=== PATIENT | male | born 1945 | race Caucasian/White ===

== ENCOUNTER 2018-05-10 02:29 | Observation (INO) | payer MEDICARE, OTHER ==
[~2018-05-10] VITALS: Ht 177.8 cm; Wt 106.7 kg
[2018-05-10] MEDS ORDERED: GABA-827 PO (02:56)
[2018-05-10] MEDS ORDERED: EMPA10TA PO (02:56)
[2018-05-10] MEDS ORDERED: METF500T17 PO (02:56)
[2018-05-10] MEDS ORDERED: METO25TA35 PO (02:56)
[2018-05-10] MEDS ORDERED: INSU100V8 SQ (02:56)
[2018-05-10] MEDS ORDERED: GLIM1TAB2 PO (02:56)
[2018-05-10] MEDS ORDERED: SAXA2.5T PO (02:56)
[2018-05-10] MEDS ORDERED: FENO54TA17 PO (02:56)
[2018-05-10] MEDS ORDERED: ASPI-621 PO (02:56)
[2018-05-10] MEDS ORDERED: TRAN1TAB PO (02:56)
[2018-05-10] MEDS ORDERED: SODIUM CHLORIDE FLUSH 10ML SYR IVF ONE (03:00)
[2018-05-10] MEDS ORDERED: NITROGLYCERIN SINGLE TAB 0.4 MG SL ONE (03:00)
[2018-05-10 03:02] LABS: BASOPHILS # (AUTO) 0.09 x10^3/uL (0-0.1); BASOPHILS % (AUTO) 1 % (0-1); EOSINOPHILS # (AUTO) 0.45 x10^3/uL (0-0.4); EOSINOPHILS % (AUTO) 5 % (1-7); LYMPHOCYTES # (AUTO) 3.07 x10^3/uL (1-3.4); LYMPHOCYTES % (AUTO) 31 % (22-44); MD NO; MEAN CORPUSCULAR HEMOGLOBIN 30.5 pg (27.5-34.5); MEAN CORPUSCULAR HGB CONC 34.3 g/dL (33.2-36.2); MEAN CORPUSCULAR VOLUME 88.9 fL (81-97); MEAN PLATELET VOLUME 8.8 fL (7.4-10.4); MONOCYTES # (AUTO) 0.79 x10^3/uL (0.2-0.8); MONOCYTES % (AUTO) 8 % (2-9); NEUTROPHILS % (AUTO) 56 % (42-75); PLATELET COUNT 238 x10^3/uL (130-400); RED BLOOD COUNT 5.26 x10^6/uL (4.38-5.82); RED CELL DISTRIBUTION WIDTH 13.8 % (9.4-14.8)
[2018-05-10] MEDS: NITROGLYCERIN SINGLE TAB 0.4 MG SL PRN ×2 (03:03→03:36)
[2018-05-10 03:12] LABS: ALANINE AMINOTRANSFERASE 35 U/L (12-78); ALBUMIN 3.5 g/dL (3.4-5.0); ANION GAP 9 mmol/L (5-15); CALCIUM 8.6 mg/dL (8.5-10.1); CHLORIDE 108 mmol/L (98-107); CREATININE 1.13 mg/dL (0.7-1.3)
[2018-05-10 03:16] LABS: ALKALINE PHOSPHATASE 83 U/L (45-117); BILIRUBIN,TOTAL 0.4 mg/dL (0.2-1.0); TOTAL PROTEIN 6.3 g/dL (6.4-8.2); TROPONIN I < 0.015 ng/mL (0.000-0.045)
[2018-05-10] MEDS ORDERED: ONDANSETRON 2MG/ML, 2ML ONE (03:57)
[2018-05-10] MEDS ORDERED: MORPHINE SULFATE 4 MG/ML, 1ML ONE (03:57)
[2018-05-10] MEDS ORDERED: ONDANSETRON 2MG/ML, 2ML IVPush PRN ×2 (04:00→05:30)
[2018-05-10] MEDS ORDERED: MORPHINE SULFATE 4 MG/ML, 1ML IVPush PRN (04:00)
[2018-05-10 04:48] VITALS: BP 141/87
[2018-05-10] MEDS ORDERED: ACETAMINOPHEN 325 MG TABLET PO PRN (05:30)
[2018-05-10] MEDS ORDERED: morphine SULFATE 10 MG/ML, 1ML IVPush PRN (05:30)
[2018-05-10] MEDS ORDERED: hydrALAzine 20 MG/ML, 1ML IVPush PRN (05:30)
[2018-05-10] MEDS ORDERED: NITROGLYCERIN 0.4 MG BOTTLE (25 TABS) SL PRN (05:30)
[2018-05-10] MEDS: SODIUM CHLORIDE 0.9% 1,000 ML IV SCH ×2 (05:57→16:43)
[2018-05-10] MEDS: INSULIN LISPRO 100 UNITS/ML, PEN SQ-INSULIN SCH ×4 (07:00→21:00)
[2018-05-10 07:22] VITALS: BP 126/69
[2018-05-10] MEDS ORDERED: REGADENOSON 0.4 MG/5 ML SYRINGE ONE (08:30)
[2018-05-10] MEDS: ASPIRIN 81 MG TABLET EC PO SCH ×2 (08:40→21:14)
[2018-05-10 09:08] LABS: TROPONIN I 0.019 ng/mL (0.000-0.045)
[2018-05-10] MEDS ORDERED: TAMS0.4C2 PO (11:33)
[2018-05-10] MEDS ORDERED: PRAV80TA2 PO (11:33)
[2018-05-10 11:42] VITALS: BP 142/90
[2018-05-10 11:54] VITALS: BP 125/76
[2018-05-10 12:14] LABS: TROPONIN I < 0.015 ng/mL (0.000-0.045)
[2018-05-10 12:34] VITALS: BP 113/67
[2018-05-10] MEDS ORDERED: MAALOX/HYOSCYAMINE/LIDOCAINE 45 ML BTL PO ONE (14:00)
[2018-05-10] MEDS ORDERED: INSULIN GLARGINE 100 UNITS/ML, PEN SQ-INSULIN SCH (20:00)
[2018-05-10 20:15] VITALS: BP 147/87
[2018-05-10] MEDS ORDERED: METOPROLOL TARTRATE 50 MG TABLET PO SCH (21:00)
[2018-05-10] MEDS: PRAVASTATIN 40 MG TABLET PO SCH (21:13)
[2018-05-10] MEDS: metFORMIN 500 MG TABLET PO SCH (21:13)
[2018-05-10] MEDS: TAMSULOSIN 0.4 MG CAP.ER.24H PO SCH (21:14)
[2018-05-10] MEDS: GABAPENTIN 100 MG CAPSULE PO SCH (21:14)
[2018-05-11 01:34] VITALS: BP 104/64
[2018-05-11 01:42] LABS: HEMOGLOBIN A1C 8.7 % (4.2-6.3)
[2018-05-11] MEDS: SODIUM CHLORIDE 0.9% 1,000 ML IV SCH ×4 (05:10→19:24)
[2018-05-11] MEDS: INSULIN LISPRO 100 UNITS/ML, PEN SQ-INSULIN SCH ×4 (07:00→21:02)
[2018-05-11 07:21] VITALS: BP 135/80
[2018-05-11] MEDS: (Empagliflozin (Jardiance) 10 MG) PO SCH (09:00)
[2018-05-11] MEDS: GLIMEPIRIDE 4 MG TABLET PO SCH (09:00)
[2018-05-11] MEDS: metFORMIN 500 MG TABLET PO SCH ×2 (09:00→19:23)
[2018-05-11] MEDS: SAXAGLIPTIN HCL 5 MG PO SCH (09:00)
[2018-05-11] MEDS: FENOFIBRATE 54 MG TABLET PO SCH (09:09)
[2018-05-11] MEDS: GABAPENTIN 100 MG CAPSULE PO SCH ×3 (09:09→20:58)
[2018-05-11] MEDS: METOPROLOL TARTRATE 25 MG TABLET PO SCH ×2 (09:09→20:58)
[2018-05-11] MEDS: ASPIRIN 81 MG TABLET EC PO SCH ×2 (09:09→20:58)
[2018-05-11] MEDS ORDERED: SODIUM CHLORIDE 0.9% 1,000 ML IV ONE (10:16)
[2018-05-11] MEDS ORDERED: VERAPAMIL 2.5 MG/ML, 2ML ONE (12:15)
[2018-05-11] MEDS ORDERED: BIVALIRUDIN 250 MG ONE ×2 (12:15→13:46)
[2018-05-11] MEDS ORDERED: FENTANYL PF 100 MCG/2ML ONE (12:15)
[2018-05-11] MEDS ORDERED: MIDAZOLAM 1 MG/ML, 5ML ONE (12:15)
[2018-05-11] MEDS ORDERED: NITROGLYCERIN 5 MG/ML, 10ML ONE (12:15)
[2018-05-11] MEDS ORDERED: HEPARIN 1,000 UNITS/ML, 10ML ONE (12:16)
[2018-05-11 13:15] VITALS: BP 123/68
[2018-05-11] MEDS ORDERED: BIVALIRUDIN 250 MG in DEXTROSE 5% 100 ML IV SCH ×2 (14:12→18:00)
[2018-05-11 15:32] VITALS: BP 123/78
[2018-05-11] MEDS ORDERED: PRASUGREL 10 MG TABLET ONE (17:10)
[2018-05-11 18:36] VITALS: BP 142/85
[2018-05-11] MEDS: TAMSULOSIN 0.4 MG CAP.ER.24H PO SCH (20:58)
[2018-05-11] MEDS: PRAVASTATIN 40 MG TABLET PO SCH (20:58)
[2018-05-12] MEDS: SODIUM CHLORIDE 0.9% 1,000 ML IV SCH ×2 (00:13→07:43)
[2018-05-12 01:27] VITALS: BP 100/56
[2018-05-12 05:42] LABS: ANION GAP 8 mmol/L (5-15); CALCIUM 8.1 mg/dL (8.5-10.1); CHLORIDE 111 mmol/L (98-107); CREATININE 1.02 mg/dL (0.7-1.3)
[2018-05-12] MEDS: INSULIN LISPRO 100 UNITS/ML, PEN SQ-INSULIN SCH ×2 (07:00→11:35)
[2018-05-12 08:01] VITALS: BP 126/72
[2018-05-12] MEDS: (Empagliflozin (Jardiance) 10 MG) PO SCH (09:00)
[2018-05-12] MEDS: METOPROLOL TARTRATE 25 MG TABLET PO SCH (09:00)
[2018-05-12] MEDS ORDERED: PRASUGREL 10 MG TABLET PO SCH (09:00)
[2018-05-12] MEDS: SAXAGLIPTIN HCL 5 MG PO SCH (09:00)
[2018-05-12] MEDS: metFORMIN 500 MG TABLET PO SCH (09:41)
[2018-05-12] MEDS: FENOFIBRATE 54 MG TABLET PO SCH (09:44)
[2018-05-12] MEDS: ASPIRIN 81 MG TABLET EC PO SCH (09:46)
[2018-05-12] MEDS: GABAPENTIN 100 MG CAPSULE PO SCH (09:47)
[2018-05-12] MEDS: GLIMEPIRIDE 4 MG TABLET PO SCH (10:01)
[2018-05-12] MEDS ORDERED: METO25TA35 PO (10:46)
[2018-05-12] MEDS ORDERED: PRAS10TA4 PO (10:46)
[2018-05-12] MEDS ORDERED: NITR0.4T SL (10:46)
== END 2018-05-12 11:57 | disposition home or self-care (01) ==
LOC: ED 02:55 → EDIP 03:54 → 5SO 03:54 → INTOOBSV 03:54 → UNDOADMIN 03:54 → DCLOUNGE 05-12 11:44
PROVIDERS: ADMIT Hospitalist; ATTEND Hospitalist
DX: R07.89 Other chest pain (principal); E11.65 Type 2 diabetes mellitus with hyperglycemia; E66.9 Obesity, unspecified; E78.5 Hyperlipidemia, unspecified; G47.33 Obstructive sleep apnea (adult) (pediatric); I10 Essential (primary) hypertension; I21.4 Non-ST elevation (NSTEMI) myocardial infarction; I25.110 Atherosclerotic heart disease of native coronary artery with unstable angina pectoris; I44.7 Left bundle-branch block, unspecified; I47.2 Ventricular tachycardia; K21.0 Gastro-esophageal reflux disease with esophagitis; K22.10 Ulcer of esophagus without bleeding; Z82.49 Family history of ischemic heart disease and other diseases of the circulatory system; Z83.3 Family history of diabetes mellitus
CPT/HCPCS: 36415; 71045; 78452; 80048; 80053; 82962; 83036; 84484; 85025; 93005; 93017; 93306; 93458; 96365; 96366; 96372; 96375; 99156; 99157; 99285; A9502; C1725; C1769; C1874; C1887; C1894; C9600; C9898; G0378; J0583; J1644; J1815; J2250; J2405; J2785; J3010; J7030; Q9967

== ENCOUNTER 2018-06-01 10:39 | Day surgery (SDC) | payer MEDICARE, OTHER ==
[~2018-06-01] VITALS: Ht 177.8 cm; Wt 100.0 kg
[~2018-06-01 10:39] MED LIST: ASPI81TA45 PO; EMPA10TA PO; FENO54TA17 PO; GABA-827 PO; GLIM1TAB2 PO; INSU100V8 SQ; METF500T17 PO; METO25TA35 PO; NITR0.4T SL; PRAS10TA4 PO; PRAV80TA2 PO; SAXA2.5T PO; TAMS0.4C2 PO; TRAN1TAB PO
[2018-06-01 11:47] VITALS: BP 118/83
[2018-06-01 12:25] LABS: ANION GAP 8 mmol/L (5-15); CALCIUM 9.1 mg/dL (8.5-10.1); CHLORIDE 108 mmol/L (98-107); CREATININE 1.14 mg/dL (0.7-1.3)
[2018-06-01 12:41] LABS: RED BLOOD COUNT 5.33 x10^6/uL (4.38-5.82)
[2018-06-01 12:42] LABS: BASOPHILS # (AUTO) 0.05 x10^3/uL (0-0.1); BASOPHILS % (AUTO) 1 % (0-1); EOSINOPHILS # (AUTO) 0.25 x10^3/uL (0-0.4); EOSINOPHILS % (AUTO) 3 % (1-7); LYMPHOCYTES # (AUTO) 2.23 x10^3/uL (1-3.4); LYMPHOCYTES % (AUTO) 25 % (22-44); MD NO; MEAN CORPUSCULAR HEMOGLOBIN 30.2 pg (27.5-34.5); MEAN CORPUSCULAR HGB CONC 33.9 g/dL (33.2-36.2); MEAN PLATELET VOLUME 8.3 fL (7.4-10.4); MONOCYTES # (AUTO) 0.74 x10^3/uL (0.2-0.8); MONOCYTES % (AUTO) 8 % (2-9); NEUTROPHILS # (AUTO) 5.63 x10^3/uL (1.8-6.8); NEUTROPHILS % (AUTO) 63 % (42-75); PLATELET COUNT 265 x10^3/uL (130-400); RED CELL DISTRIBUTION WIDTH 13.7 % (9.4-14.8)
[2018-06-01] MEDS ORDERED: TICAGRELOR 90 MG TABLET ONE (13:07)
[2018-06-01] MEDS ORDERED: FENTANYL PF 100 MCG/2ML ONE (13:07)
[2018-06-01] MEDS ORDERED: BIVALIRUDIN 250 MG ONE (13:07)
[2018-06-01] MEDS ORDERED: VERAPAMIL 2.5 MG/ML, 2ML ONE (13:07)
[2018-06-01] MEDS ORDERED: HEPARIN 1,000 UNITS/ML, 10ML ONE (13:07)
[2018-06-01] MEDS ORDERED: MIDAZOLAM 1 MG/ML, 5ML ONE (13:07)
[2018-06-01] MEDS ORDERED: PRASUGREL 10 MG TABLET ONE (13:16)
== END 2018-06-01 17:38 | disposition home or self-care (01) ==
LOC: CACL 10:39 → 5SO 14:16 → CACL 17:38
PROVIDERS: ATTEND Internal Medicine Cardiovascular Disease
DX: I25.110 Atherosclerotic heart disease of native coronary artery with unstable angina pectoris (principal); E11.9 Type 2 diabetes mellitus without complications; I10 Essential (primary) hypertension; I25.2 Old myocardial infarction; E78.00 Pure hypercholesterolemia, unspecified; I35.0 Nonrheumatic aortic (valve) stenosis; I34.2 Nonrheumatic mitral (valve) stenosis; Z79.82 Long term (current) use of aspirin; Z79.899 Other long term (current) drug therapy
CPT/HCPCS: 36415; 80048; 85025; 93454; 99156; C1760; C1769; C1894; J0583; J2250; J3010; Q9967; G0378; J1644

== ENCOUNTER 2019-01-24 06:46 | Outpatient (CLI) | payer MEDICARE, OTHER ==
[~2019-01-24 06:46] MED LIST changes: -NITR0.4T SL; +NITR0.4T41 SL
== END 2019-01-24 23:59 | disposition home or self-care (01) ==
LOC: CFH 06:46
PROVIDERS: ATTEND Internal Medicine Cardiovascular Disease
DX: I08.0 Rheumatic disorders of both mitral and aortic valves (principal); I25.10 Atherosclerotic heart disease of native coronary artery without angina pectoris; I10 Essential (primary) hypertension; E78.5 Hyperlipidemia, unspecified; Z95.5 Presence of coronary angioplasty implant and graft; Z79.01 Long term (current) use of anticoagulants; Z87.891 Personal history of nicotine dependence
CPT/HCPCS: 93306

== ENCOUNTER 2019-12-06 09:36 | Outpatient (CLI) | payer MEDICARE, OTHER ==
[~2019-12-06 09:36] MED LIST changes: -GLIM1TAB2 PO; +GLIM1TAB7 PO
== END 2019-12-06 23:59 | disposition home or self-care (01) ==
LOC: CFH 09:36
PROVIDERS: ATTEND Internal Medicine Cardiovascular Disease
DX: I08.0 Rheumatic disorders of both mitral and aortic valves (principal); I10 Essential (primary) hypertension; E78.5 Hyperlipidemia, unspecified; E11.9 Type 2 diabetes mellitus without complications
CPT/HCPCS: 93306

== ENCOUNTER 2019-12-21 08:26 | Day surgery (SDC) | payer MEDICARE ==
[~2019-12-21] VITALS: Ht 177.8 cm; Wt 103.2 kg
[2019-12-21] MEDS ORDERED: CLOPIDOGREL 75 MG TABLET PO ONE (09:00)
[2019-12-21] MEDS ORDERED: CLOP75TA52 PO (09:14)
[2019-12-21] MEDS ORDERED: METO50TA82 PO (09:14)
[2019-12-21] MEDS ORDERED: FENO160T PO (09:14)
[2019-12-21] MEDS ORDERED: FENTANYL PF 100 MCG/2ML ONE (09:18)
[2019-12-21] MEDS ORDERED: LIDOCAINE-MPF 1%, 5ML ONE (09:18)
[2019-12-21] MEDS ORDERED: HEPARIN 1,000 UNITS/ML, 10ML ONE (09:18)
[2019-12-21] MEDS ORDERED: VERAPAMIL 2.5 MG/ML, 2ML ONE (09:18)
[2019-12-21] MEDS ORDERED: MIDAZOLAM 1 MG/ML, 5ML ONE (09:18)
[2019-12-21] MEDS ORDERED: EZET10TA70 PO (09:23)
[2019-12-21 09:25] VITALS: BP 140/91
[2019-12-21] MEDS ORDERED: CLOPIDOGREL 75 MG TABLET ONE (09:29)
[2019-12-21] MEDS: SODIUM BICARBONATE 8.4% 150 MEQ in DEXTROSE 5% 1,000 ML IV SCH ×2 (09:30→10:34)
[2019-12-21 09:31] LABS: ANION GAP 9 mmol/L (5-15); CALCIUM 9.1 mg/dL (8.5-10.1); CHLORIDE 105 mmol/L (98-107); CREATININE 1.19 mg/dL (0.7-1.3)
== END 2019-12-21 15:00 | disposition home or self-care (01) ==
LOC: CACL 08:26
PROVIDERS: ATTEND Internal Medicine Cardiovascular Disease
DX: I35.0 Nonrheumatic aortic (valve) stenosis (principal); I25.10 Atherosclerotic heart disease of native coronary artery without angina pectoris; I10 Essential (primary) hypertension; E11.9 Type 2 diabetes mellitus without complications; G47.33 Obstructive sleep apnea (adult) (pediatric); E78.2 Mixed hyperlipidemia; I25.2 Old myocardial infarction; E66.9 Obesity, unspecified; Z79.84 Long term (current) use of oral hypoglycemic drugs; Z79.4 Long term (current) use of insulin; Z68.32 Body mass index [BMI] 32.0-32.9, adult; Z79.899 Other long term (current) drug therapy; Z98.890 Other specified postprocedural states; Z82.49 Family history of ischemic heart disease and other diseases of the circulatory system; Z87.891 Personal history of nicotine dependence
CPT/HCPCS: 36415; 80048; 93454; 99156; 99157; C1769; C1894; J1644; J2250; J3010; J7070; Q9967

== ENCOUNTER → 2019-12-27 | Outpatient (CLI) | payer MEDICARE ==
[~2019-12-27] MED LIST changes: +CLOP75TA52 PO; +EZET10TA70 PO; +FENO160T PO; +METO50TA82 PO; +VISIPAQUE 320 MG/ML, 150ML BOTTLE ONE
== END | disposition home or self-care (01) ==
LOC: CVU 09:21
PROVIDERS: ATTEND Internal Medicine Cardiovascular Disease
DX: Z01.810 Encounter for preprocedural cardiovascular examination (principal); I65.23 Occlusion and stenosis of bilateral carotid arteries; I25.10 Atherosclerotic heart disease of native coronary artery without angina pectoris; I35.8 Other nonrheumatic aortic valve disorders; I70.0 Atherosclerosis of aorta
CPT/HCPCS: 71275; 74174; 93880; 94010; 94726; 94729; Q9967

== ENCOUNTER 2020-01-03 07:53 | Inpatient (IN) | payer MEDICARE ==
[~2020-01-03] VITALS: Ht 177.8 cm; Wt 103.2 kg
[~2020-01-03 07:53] MED LIST changes: -VISIPAQUE 320 MG/ML, 150ML BOTTLE ONE
[2020-01-03] MEDS ORDERED: SODIUM CHLORIDE 0.9% 1,000 ML IV ONE (08:13)
[2020-01-03 08:23] VITALS: BP 139/81
[2020-01-03] MEDS ORDERED: ONDANSETRON 2MG/ML, 2ML IVPush PRN ×2 (08:30→11:00)
[2020-01-03 08:55] LABS: BASOPHILS # (AUTO) 0.04 x10^3/uL (0-0.1); BASOPHILS % (AUTO) 1 % (0-1); EOSINOPHILS # (AUTO) 0.35 x10^3/uL (0-0.4); EOSINOPHILS % (AUTO) 4 % (1-7); LYMPHOCYTES # (AUTO) 2.16 x10^3/uL (1-3.4); LYMPHOCYTES % (AUTO) 25 % (22-44); MD NO; MEAN CORPUSCULAR HEMOGLOBIN 30.4 pg (27.5-34.5); MEAN CORPUSCULAR HGB CONC 33.3 g/dL (33.2-36.2); MEAN PLATELET VOLUME 8.3 fL (7.4-10.4); MONOCYTES # (AUTO) 0.65 x10^3/uL (0.2-0.8); MONOCYTES % (AUTO) 7 % (2-9); NEUTROPHILS # (AUTO) 5.52 x10^3/uL (1.8-6.8); NEUTROPHILS % (AUTO) 63 % (42-75); PLATELET COUNT 276 x10^3/uL (130-400); RED BLOOD COUNT 5.03 x10^6/uL (4.38-5.82); RED CELL DISTRIBUTION WIDTH 13.8 % (9.4-14.8)
[2020-01-03 09:05] LABS: INTERNATIONAL NORMALIZED RATIO 0.99 (0.93-1.1); PROTHROMBIN TIME 10.5 Seconds (9.6-11.5)
[2020-01-03] MEDS ORDERED: ACAR25TA9 PO (09:05)
[2020-01-03 09:10] LABS: ALBUMIN 3.8 g/dL (3.4-5.0); ANION GAP 6 mmol/L (5-15); CALCIUM 8.9 mg/dL (8.5-10.1); CHLORIDE 104 mmol/L (98-107)
[2020-01-03 09:14] LABS: ALANINE AMINOTRANSFERASE 41 U/L (12-78); ALKALINE PHOSPHATASE 81 U/L (45-117); BILIRUBIN,TOTAL 0.7 mg/dL (0.2-1.0); CREATININE 1.39 mg/dL (0.7-1.3); TOTAL PROTEIN 7.2 g/dL (6.4-8.2)
[2020-01-03] MEDS ORDERED: FENTANYL PF 250 MCG/5ML ONE (09:18)
[2020-01-03] MEDS ORDERED: SUCCINYLCHOLINE 20 MG/ML, 10ML ONE (09:40)
[2020-01-03] MEDS ORDERED: CEFAZOLIN 1,000 MG ONE (09:40)
[2020-01-03] MEDS ORDERED: HEPARIN 1,000 UNITS/ML, 10ML ONE (09:40)
[2020-01-03] MEDS ORDERED: ROCURONIUM 10MG/ML,5ML ONE (10:06)
[2020-01-03] MEDS ORDERED: PROPOFOL 10 MG/ML, 20ML ONE (10:06)
[2020-01-03] MEDS ORDERED: DEXTROSE 4 GM TAB.CHEW PO PRN (11:00)
[2020-01-03] MEDS ORDERED: NITROGLYCERIN SINGLE TAB 0.4 MG SL PRN (11:00)
[2020-01-03] MEDS ORDERED: LABETALOL 20 MG/4 ML IVPush PRN (11:00)
[2020-01-03] MEDS ORDERED: hydrALAzine 20 MG/ML, 1ML IVPush PRN (11:00)
[2020-01-03] MEDS ORDERED: HYDROcodone/APAP 5/325 TABLET PO PRN (11:00)
[2020-01-03] MEDS ORDERED: DEXTROSE 50%, 50ML SYRINGE IVPush PRN (11:00)
[2020-01-03] MEDS ORDERED: GLUCAGON 1 MG IM PRN (11:00)
[2020-01-03] MEDS ORDERED: ACETAMINOPHEN 325 MG TABLET PO PRN (11:00)
[2020-01-03] MEDS ORDERED: CLOPIDOGREL 300 MG TABLET PO ONE (11:00)
[2020-01-03 15:06] VITALS: BP 137/22
[2020-01-03] MEDS ORDERED: ACARBOSE 50 MG TABLET PO SCH (16:00)
[2020-01-03] MEDS ORDERED: GABAPENTIN 100 MG CAPSULE PO SCH (16:00)
[2020-01-03] MEDS ORDERED: PRAVASTATIN 40 MG TABLET PO SCH (21:00)
[2020-01-03] MEDS ORDERED: INSULIN GLARGINE 100 UNITS/ML, PEN SQ-INSULIN SCH (21:00)
[2020-01-03] MEDS ORDERED: METOPROLOL TARTRATE 50 MG TAB PO SCH (21:00)
[2020-01-03] MEDS ORDERED: TAMSULOSIN 0.4 MG CAP.ER.24H PO SCH (21:00)
[2020-01-03] MEDS ORDERED: ASPIRIN 81 MG TABLET EC PO SCH (21:00)
[2020-01-03] MEDS ORDERED: metFORMIN 500 MG TABLET PO SCH (21:00)
[2020-01-03] MEDS ORDERED: SODIUM CHLORIDE FLUSH 10ML SYR IVF SCH (21:00)
[2020-01-04] MEDS ORDERED: EZETIMIBE 10 MG TABLET PO SCH (09:00)
[2020-01-04] MEDS ORDERED: LISINOPRIL 40 MG TABLET PO SCH (09:00)
[2020-01-04] MEDS ORDERED: GLIMEPIRIDE 4 MG TABLET PO SCH (09:00)
[2020-01-04] MEDS ORDERED: CLOPIDOGREL 75 MG TABLET PO SCH ×2 (09:00)
[2020-01-04] MEDS ORDERED: FENOFIBRATE 145 MG TABLET PO SCH (09:00)
== END 2020-01-03 15:50 | disposition short-term general hospital (02) | DRG 266 ==
LOC: ORIP 07:53 → 5SO 13:38
PROVIDERS: ADMIT Internal Medicine Cardiovascular Disease; ATTEND Internal Medicine Cardiovascular Disease
PROC: B246ZZ4 Ultrasonography of Right and Left Heart, Transesophageal (ICD-10-PCS; 2020-01-03)
PROC: 03HY32Z Insertion of Monitoring Device into Upper Artery, Percutaneous Approach (ICD-10-PCS; 2020-01-03)
PROC: B3101ZZ Fluoroscopy of Thoracic Aorta using Low Osmolar Contrast (ICD-10-PCS; 2020-01-03)
PROC: 02RF38Z Replacement of Aortic Valve with Zooplastic Tissue, Percutaneous Approach (ICD-10-PCS; principal; 2020-01-03 10:00)
DX: I35.0 Nonrheumatic aortic (valve) stenosis (principal); Z00.6 Encounter for examination for normal comparison and control in clinical research program; I50.33 Acute on chronic diastolic (congestive) heart failure; I65.1 Occlusion and stenosis of basilar artery; R41.82 Altered mental status, unspecified; E11.9 Type 2 diabetes mellitus without complications; E78.5 Hyperlipidemia, unspecified; Z20.828 Contact with and (suspected) exposure to other viral communicable diseases; I25.10 Atherosclerotic heart disease of native coronary artery without angina pectoris; Z95.5 Presence of coronary angioplasty implant and graft; I25.2 Old myocardial infarction; I11.0 Hypertensive heart disease with heart failure; Y92.9 Unspecified place or not applicable
CPT/HCPCS: 33361; 36415; 70450; 76937; 80053; 82962; 85025; 85347; 85610; 86850; 86900; 86923; 87635; 93005; 93312; 93321; 93325; 93355; C1760; C1769; C1894; G0378; J0690; J1644; J2704; J3010; J0330; J0360; Q9967

== ENCOUNTER → 2020-02-03 | Outpatient (CLI) | payer MEDICARE ==
[~2020-02-03] MED LIST changes: +ACAR25TA9 PO
== END | disposition home or self-care (01) ==
LOC: CVU 09:34
PROVIDERS: ATTEND Internal Medicine Cardiovascular Disease
DX: I08.3 Combined rheumatic disorders of mitral, aortic and tricuspid valves (principal); I65.29 Occlusion and stenosis of unspecified carotid artery
CPT/HCPCS: 93306

== ENCOUNTER 2021-02-22 09:47 | Outpatient (CLI) | payer MEDICARE ==
[~2021-02-22 09:47] MED LIST changes: -TRAN1TAB PO; +TRAN1TAB18 PO
== END 2021-02-22 23:59 | disposition home or self-care (01) ==
LOC: CVU 09:47
PROVIDERS: ATTEND Internal Medicine Cardiovascular Disease
DX: Z01.810 Encounter for preprocedural cardiovascular examination (principal); I34.0 Nonrheumatic mitral (valve) insufficiency; I11.9 Hypertensive heart disease without heart failure; E78.5 Hyperlipidemia, unspecified; E11.9 Type 2 diabetes mellitus without complications; Z86.73 Personal history of transient ischemic attack (TIA), and cerebral infarction without residual deficits; Z95.4 Presence of other heart-valve replacement; Z95.0 Presence of cardiac pacemaker
CPT/HCPCS: 93306